=== PATIENT | female | born 1995 | race Caucasian/White ===

== ENCOUNTER 2024-01-05 17:16 | Inpatient (IN) | payer OTHER ==
[2024-01-05] MEDS ORDERED: NA CHLORIDE 0.9% 1,000 ML ONE ×2 (19:42→20:21)
[2024-01-05 19:50] LABS: Absolute Lymphocytes (CBC) 0.5 K/uL (0.7-4.9); Absolute Monocytes 0.2 K/uL (0.1-1.3); Absolute Neutrophil 15.8 K/uL (1.8-8.0); Basophils % 0.1 % (0-1.3); Hematocrit 49.6 % (36.0-45.0); Hemoglobin 15.6 g/dL (12.0-15.0); Lymphocytes % 2.9 % (15.3-44.8); MCH 31.6 pg (27.0-35.0); MCHC 31.5 g/dL (32.0-36.0); MCV 100.4 fL (80-100); MPV 9.5 fL (7.6-11.3); Monocytes % 1.2 % (3.3-12.3); Neutrophils % 95.8 % (41.7-73.7); Platelets 364 thou/uL (152-406); RBC Red Blood Cell Count 4.93 M/uL (3.86-4.86); Red Cell Distribution Width 13.6 % (12.1-15.2)
[2024-01-05 20:16] LABS: Specific Gravity 1.021 (1.005-1.030); Sqamous Epithelial <5 /HPF (None Seen); Urine Bacteria None Seen /HPF (<20); Urine Bilirubin NEGATIVE (Negative); Urine Blood 1+ (Negative); Urine Clarity Clear (Clear); Urine Color Colorless (Yellow); Urine Culture Reflex Order NOT NEEDED; Urine Glucose 4+ (Over) (Negative); Urine Ketones 4+ (Over) (Negative); Urine Microscopic Reflex YN ORDER UMIC; Urine Mucus Slight /HPF (None Seen); Urine Nitrite NEGATIVE (Negative); Urine Protein 1+ (Negative); Urine RBC <5 /HPF (None Seen); Urine Urobilinogen Normal (Normal); Urine WBC <5 /HPF (<5); Urine pH 5.5 (5.0-7.0)
[2024-01-05 20:20] LABS: ALT/SGPT 20 U/L (13-56); Albumin 4.9 g/dL (3.4-5.0); Albumin/Globulin Ratio 1.2 (1.1-1.8); Alkaline Phosphatase 117 U/L (45-117); Anion Gap 26.2 mEq/L (5.0-15.0); BUN Blood Urea Nitrogen 23 mg/dL (7-18); Bicarbonate 10 mEq/L (21-32); Bilirubin Total 0.6 mg/dL (0.2-1.0); Glomerular Filtration Rate 74 ml/min (=/>90); Glucose Level 340 mg/dL (74-106); Lipase 12 U/L (13-75); Potassium 5.2 mEq/L (3.5-5.1); Protein, Total 8.9 g/dL (6.4-8.2); Sodium Level 133 mEq/L (136-145)
[2024-01-05 20:23] LABS: AST/SGOT < 10 U/L (15-37); Troponin High Sensitivity < 3.0 pg/mL (<58.9)
--- NOTE | 2024-01-05 20:31 | EDPHYS ---
Physician Documentation [facility] Name: Padmini Kellogg Age: 28 yrs Sex: Female : 1995 Arrival Date: 01/05/2024 Time: 17:16 Bed 5 Private MD: ED Physician Zackery Ferrer HPI: 01/04 19:29 This 28 yrs old Female presents to ER via Wheelchair with complaints of High blood sb4 sugar, nausea, abdominal pain. 19:29 nonspecific abd pain x 2 days, woke up feeling poorly this morning, similar to prior sb4 DKA episodes. states she has been sick with vague illnesses over the past week so her blood sugar has been running higher. denies any changes in her insulin regimen . 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 - Infectious Disease History:: Denies. - Social history:: Smoking status: Patient denies any tobacco usage or history of. ROS: 19:29 Constitutional: Negative for fever, chills, and weight loss, sb4 19:29 Abdomen/GI: Positive for abdominal pain, nausea and vomiting, 19:29 All other systems are negative, Exam: 19:29 Head/Face: Normocephalic, atraumatic. Eyes: Extra-ocular motions intact. Periorbital sb4 areas with no swelling, redness, or edema. ENT: Mucous membranes moist. Respiratory: Lungs have equal breath sounds bilaterally, clear to auscultation and percussion. No rales, rhonchi or wheezes noted. No increased work of breathing, no retractions or nasal flaring. Abdomen/GI: Soft, non-tender, no distension. Skin: Warm, dry with normal turgor. Normal color with no rashes, no lesions, and no evidence of cellulitis. 19:29 Constitutional: The patient appears alert, awake, obviously ill, uncomfortable, 19:29 Cardiovascular: Rate: tachycardic, Rhythm: regular, Vital Signs: 17:50 BP 110 / 57; Pulse 113; Resp 20 S; Pulse Ox 97% on R/A; Weight 79.38 kg (R); Height 5 kc6 ft. 10 in. (R); Pain 5/10; 19:41 Pulse 118; Pulse Ox 97% on R/A; tm6 19:57 BP 132 / 67; tm6 20:28 BP 118 / 61; Pulse 121; Temp 97.5(O); Pulse Ox 100% on R/A; tm6 17:50 Body Mass Index 25.11 (79.38 kg, 177.8 cm) kc6 17:50 Pain Scale: Adult kc6 MDM: 17:50 Patient medically screened. sb4 20:27 Data reviewed: vital signs, nurses notes, lab test result(s), EKG, radiologic studies, sb4 and as a result, I will admit patient. Consideration of Admission/Observation Patient was admitted/placed on observation. Counseling: I had a detailed discussion with the patient and/or guardian regarding the historical points, exam findings, and any diagnostic results supporting the discharge/admit diagnosis, lab results, the need for further work-up and treatment in the hospital. 01/04 17:52 Order name: CBC with Diff; Complete Time: 20:33 sb4 01/04 17:52 Order name: CMP; Complete Time: 20:24 sb4 01/04 17:52 Order name: Lipase; Complete Time: 20:24 sb4 01/04 17:52 Order name: Test, Urine; Complete Time: 20:16 sb4 01/04 17:52 Order name: Urinalysis w/ reflexes; Complete Time: 20:17 sb4 01/04 17:52 Order name: Troponin High Sensitivity; Complete Time: 20:24 sb4 01/04 18:09 Order name: Glucose, Ancillary Testing; Complete Time: 18:10 EDMS 01/04 19:29 Order name: Magnesium; Complete Time: 20:24 sb4 01/04 19:58 Order name: CBC Smear Scan; Complete Time: 20:33 EDMS 01/04 20:17 Order name: SARS RAPID; Complete Time: 22:13 sb4 01/04 20:43 Order name: Basic Metabolic Panel EDMS 01/04 20:43 Order name: Basic Metabolic Panel EDMS 01/04 20:43 Order name: Basic Metabolic Panel EDMS 01/04 20:43 Order name: Basic Metabolic Panel; Complete Time: 17:00 EDMS 01/04 20:43 Order name: CBC with Automated Diff EDMS 01/04 20:43 Order name: CBC with Automated Diff; Complete Time: 17:00 EDMS 01/04 20:43 Order name: CBC with Automated Diff EDMS 01/04 20:43 Order name: CBC with Automated Diff EDMS 01/04 21:49 Order name: Glucose, Ancillary Testing; Complete Time: 21:50 EDMS 01/04 22:54 Order name: Glucose, Ancillary Testing; Complete Time: 22:56 EDMS 01/04 23:53 Order name: Glucose, Ancillary Testing; Complete Time: 23:54 EDMS 01/05 01:04 Order name: Glucose, Ancillary Testing; Complete Time: 01:05 EDMS 01/05 02:05 Order name: Glucose, Ancillary Testing; Complete Time: 17:00 EDMS 01/05 03:02 Order name: Glucose, Ancillary Testing; Complete Time: 17:00 EDMS 01/05 04:00 Order name: Glucose, Ancillary Testing; Complete Time: 17:00 EDMS 01/05 05:02 Order name: Glucose, Ancillary Testing; Complete Time: 17:00 EDMS 01/05 06:01 Order name: Glucose, Ancillary Testing; Complete Time: 17:00 EDMS 01/05 07:05 Order name: Glucose, Ancillary Testing; Complete Time: 17:00 EDMS 01/05 07:50 Order name: Glucose, Ancillary Testing; Complete Time: 17:00 EDMS 01/05 08:54 Order name: Glucose, Ancillary Testing; Complete Time: 17:00 EDMS 01/05 10:39 Order name: Basic Metabolic Panel; Complete Time: 17:00 EDMS 01/05 10:39 Order name: Magnesium; Complete Time: 17:00 EDMS 01/05 11:55 Order name: Glucose, Ancillary Testing; Complete Time: 17:00 EDMS 01/05 14:09 Order name: Glucose, Ancillary Testing; Complete Time: 17:00 EDMS 01/05 15:23 Order name: Glucose, Ancillary Testing; Complete Time: 17:00 EDMS 01/05 15:31 Order name: Basic Metabolic Panel; Complete Time: 17:00 EDMS 01/05 15:31 Order name: Magnesium; Complete Time: 17:00 EDMS 01/05 17:04 Order name: Glucose, Ancillary Testing; Complete Time: 17:19 EDMS 0804 18:36 Order name: Glucose, Ancillary Testing; Complete Time: 18:52 EDMS 04 20:25 Order name: Glucose, Ancillary Testing; Complete Time: 20:25 EDMS 04 21:13 Order name: Comprehensive Metabolic Panel; Complete Time: 21:14 EDMS 04 21:26 Order name: Glucose, Ancillary Testing; Complete Time: 21:26 EDMS 04 22:24 Order name: Glucose, Ancillary Testing; Complete Time: 22:25 EDMS 03 20:17 Order name: Chest Single View XRAY; Complete Time: 21:56 sb4 01/04 17:52 Order name: EKG; Complete Time: 17:52 sb4 03 17:52 Order name: IV Saline Lock; Complete Time: 19:47 sb4 03 17:52 Order name: Labs collected and sent; Complete Time: 19:47 sb4 03 17:52 Order name: EKG - Nurse/Tech; Complete Time: 19:37 sb4 EC:37 Rate is 116 beats/min. Rhythm is regular, Sinus tachycardia. [place] interval is normal at sb4 128 msec. QRS interval is normal at 74 msec. QT interval is normal at 320 msec. No Q waves. T waves are Normal. No ST changes noted. Clinical impression: No evidence of ischemia. Interpreted by me. Reviewed by me. Administered Medications: 19:57 Drug: NS 0.9% IV 1000 ml IV at 1 bolus Per protocol; 1000 mL bolus Route: IV; Rate: 1 tm6 bolus; Site: left antecubital; 20:28 Drug: NS 0.9% IV 1000 ml IV at 1 bolus Per protocol; 1000 mL bolus Route: IV; Rate: 1 tm6 bolus; Site: left antecubital; 20:48 Drug: Ondansetron IVP 4 mg IVP once; over 2 minutes Route: IVP; Site: left antecubital; tm6 21:35 Drug: Insulin Drip - (Insulin Regular Human IVP 100 units, NS 0.9% IV 100 ml) IV at tm6 calculated rate continuous; Standard concentration 1unit/ml; Dose for DKA is 0.1 units/kg/hr {Co-Signature: [email or web address] (Belia Rod RN).} Route: IV; Rate: calculated rate; Site: left antecubital; 22:45 Follow up: Rate change 8.9 units/hr; BGL 300 tm6 23:47 Follow up: Rate change 4.45 units/hr tm6 01/05 00:45 Follow up: Rate change 2.2 units/hr tm6 01:45 Follow up: Rate change 1.1 units/hr tm6 Disposition: 01/04 20:21 Co-signature as Attending Physician, Zackery Ferrer MD I reviewed the patient's care rt provided by the Advanced Practice Provider and agree with the diagnosis and treatment plan. Disposition Summary: 01/05/24 20:30 Hospitalization Ordered Notes: Hospitalization Status: Inpatient Admission sb4 Provider: Usman Pérez sbSteffi Condition: Serious sb4 Problem: new sb4 Symptoms: are unchanged sb4 Bed/Room Type: Standard sb4 Location: Telemetry/MedSurg (Inpatient)(01/06/24 22:11) cg Room Assignment: 229(01/06/24 22:30) cg Diagnosis - Type 2 diabetes mellitus with ketoacidosis without coma sb4 Forms: - Medication Reconciliation Form sb4 - SBAR form sb4 - Leadership Thank You Letter sb4 Critical care time excluding procedures: 20:27 Critical care time: Bedside Care: 20 minutes, Consultation: 10 minutes, Family sb4 Intervention: 5 minutes. Total time: 35 minutes Signatures: Dispatcher [employer] Sharron Garcia, RN RN cg Robbie Carrillo RN RN jb4 Yessi Luong RN RN kc6 Lin Amador PA-C PA-C sb4 Zackery Ferrer MD MD Ana Chávez [facility] Bianca Almeida RN RN tm6 Belia Rod RN [email or web address] Corrections: (The following items were deleted from the chart) 20:30 17:52 Abdomen Pelvis W Con+CT.RAD.BRZ ordered. EDMS TAMERAMS 22:37 20:30 Intensive Care Unit sb4 jb4 22:37 20:30 sb4 jb4 01/05 18:51 01/04 22:37 [facility] ER HOLD jb4 kmf 01/05 18:51 01/04 22:37 ERHOLD- jb4 [facility] 01/05 19:17 18:51 3- kmf cg 20:33 20:32 COMPREHENSIVE METABOLIC PANEL+C.LAB.BRZ ordered. EDMS EDMS : 18:51 Intensive Care Unit kmf cg 22: 19:17 cg cg 22:30 22:11 408 cg
--- NOTE | 2024-01-05 20:31 | ER ---
Nurse's Notes [facility] Name: Padmini Kellogg Age: 28 yrs Sex: Female : 1995 Arrival Date: 01/05/2024 Time: 17:16 Bed 5 Private MD: Diagnosis: Type 2 diabetes mellitus with ketoacidosis without coma Presentation: 01/04 17:50 Chief complaint: Patient states: she has been abd pain since yesterday and woke up with kc6 n/v and palpitations this AM. Coronavirus screen: At this time, the client does not indicate any symptoms associated with coronavirus-19. Ebola Screen: No symptoms or risks identified at this time. Initial Sepsis Screen: Does the patient meet any 2 criteria? HR > 90 bpm. Does the patient have a suspected source of infection? No. Patient's initial sepsis screen is negative. Risk Assessment: Do you want to hurt yourself or someone else? Patient reports no desire to harm self or others. Onset of symptoms was January 05, 2024. 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 - Infectious Disease History:: Denies. - Social history:: Smoking status: Patient denies any tobacco usage or history of. Screenin:37 [facility] ED Fall Risk Assessment (Adult) History of falling in the last 3 months, tm6 including since admission No falls in past 3 months (0 pts) Confusion or Disorientation No (0 pts) Intoxicated or Sedated No (0 pts) Impaired Gait No (0 pts) Mobility Assist Device Used No (0 pt) Altered Elimination No (0 pt) Score/Fall Risk Level 0 - 2 = Low Risk Oriented to surroundings, Maintained a safe environment, Educated pt \T\ family on fall prevention, incl call for assistance when getting out of bed. Abuse screen: Denies threats or abuse. Denies injuries from another. Nutritional screening: No deficits noted. Tuberculosis screening: No symptoms or risk factors identified. Assessment: 19:37 General: Appears uncomfortable, Behavior is calm, cooperative. Pain: Complains of pain tm6 in abdomen. Neuro: Level of Consciousness is awake, alert, obeys commands, Oriented to person, place, time, situation. Cardiovascular: Patient's skin is warm and dry. Rhythm is sinus tachycardia. Respiratory: Airway is patent Respiratory effort is even, unlabored, Respiratory pattern is regular, symmetrical. GI: Abdomen is flat, non-distended, Reports nausea, vomiting. : No signs and/or symptoms were reported regarding the genitourinary system. EENT: No signs and/or symptoms were reported regarding the EENT system. Derm: No signs and/or symptoms reported regarding the dermatologic system. Musculoskeletal: No signs and/or symptoms reported regarding the musculoskeletal system. 20:29 Reassessment: Patient is alert, oriented x 3, equal unlabored respirations, skin tm6 warm/dry/pink. Vital Signs: 17:50 BP 110 / 57; Pulse 113; Resp 20 S; Pulse Ox 97% on R/A; Weight 79.38 kg (R); Height 5 kc6 ft. 10 in. (R); Pain 5/10; 19:41 Pulse 118; Pulse Ox 97% on R/A; tm6 19:57 BP 132 / 67; tm6 20:28 BP 118 / 61; Pulse 121; Temp 97.5(O); Pulse Ox 100% on R/A; tm6 17:50 Body Mass Index 25.11 (79.38 kg, 177.8 cm) kc6 17:50 Pain Scale: Adult kc ED Course: 17:18 Patient arrived in ED. im 17:36 Lin Amador PA-C is PHCP. sb4 17:36 Zackery Ferrer MD is Attending Physician. sb4 17:51 Triage completed. kc6 17:51 Arm band placed on. kc6 19:24 Bianca Almeida, TAMMY is Primary Nurse. tm6 19:37 Patient has correct armband on for positive identification. Bed in low position. Call tm6 light in reach. Side rails up X2. Provided Education on: use of call tom. Stop insulin pump, per provider. Client placed on continuous cardiac and pulse oximetry monitoring. NIBP monitoring applied. criminal defense lawyer on. Pulse ox on. NIBP on. Door closed. Noise minimized. Warm blanket given. Pillow given. 19:37 EKG done, by ED staff, reviewed by Lin Amador PA-C. tm6 19:46 Inserted saline lock: 22 gauge in left antecubital area, using aseptic technique. Blood oe collected. Flushed with 10 mL NS. 19:46 Magnesium Sent. oe 19:46 Troponin High Sensitivity Sent. oe 19:46 CBC with Diff Sent. oe 19:46 CMP Sent. oe 19:46 Lipase Sent. oe 19:58 Urinalysis w/ reflexes Sent. tm6 19:58 Test, Urine Sent. tm6 20:28 Usman Pérez MD is Hospitalizing Provider. sb4 21:28 Chest Single View XRAY In Process Unspecified. EDMS 01/05 02:35 No provider procedures requiring assistance completed. Patient admitted, IV remains in tm6 place. 16:29 Missed attempt(s): 20 gauge in right antecubital area. oh1 Administered Medications: 01/04 19:57 Drug: NS 0.9% IV 1000 ml IV at 1 bolus Per protocol; 1000 mL bolus Route: IV; Rate: 1 tm6 bolus; Site: left antecubital; 20:28 Drug: NS 0.9% IV 1000 ml IV at 1 bolus Per protocol; 1000 mL bolus Route: IV; Rate: 1 tm6 bolus; Site: left antecubital; 20:48 Drug: Ondansetron IVP 4 mg IVP once; over 2 minutes Route: IVP; Site: left antecubital; tm6 21:35 Drug: Insulin Drip - (Insulin Regular Human IVP 100 units, NS 0.9% IV 100 ml) IV at tm6 calculated rate continuous; Standard concentration 1unit/ml; Dose for DKA is 0.1 units/kg/hr {Co-Signature: [email or web address] (Belia Rod RN).} Route: IV; Rate: calculated rate; Site: left antecubital; 22:45 Follow up: Rate change 8.9 units/hr; BGL 300 tm6 23:47 Follow up: Rate change 4.45 units/hr tm6 01/05 00:45 Follow up: Rate change 2.2 units/hr tm6 01:45 Follow up: Rate change 1.1 units/hr tm6 Medication: 01/04 19:37 VIS not applicable for this client. tm6 Intake: Outcome: 20:30 Decision to Hospitalize by Provider. sb4 01/05 02:35 Admitted to ER Hold. Please see [facility] for further documentation. tm6 Condition: stable Instructed on the need for admit, 23:42 Patient left the ED. jw7 Signatures: Dispatcher [employer] EDMS Thomas Garcia Jodi, RN RN jw7 Yessi Luong RN RN kc6 Lin Amador, PA-Renetta PA-C sb4 Rachel Crocker Tawney, RN RN tm6 Jennifer Torrez oh1 Belia Rod RN jm12
[2024-01-05 20:33] LABS: Blood Morphology Comment NOT SEEN (NOT SEEN); Platelet Estimate ADEQ; White Blood Cell Scan OK (OK)
[2024-01-05] MEDS ORDERED: GLUCAGON 1 MG/VIAL IM PRN (20:42)
[2024-01-05] MEDS ORDERED: D50W 25 GM/50 ML SYRINGE IV PRN (20:42)
[2024-01-05] MEDS ORDERED: ONDANSETRON 4 MG/2 ML VIAL ONE (20:45)
[2024-01-05] MEDS: NA CHLORIDE 0.9% 1,000 ML IV SCH (21:00)
[2024-01-05] MEDS ORDERED: NA CHLORIDE 0.9% 1,000 ML IV SCH (21:00)
--- NOTE | 2024-01-05 21:20 | P.HP ---
Certification for Inpatient With expected LOS: >2 Midnights Practitioner: I am a practitioner with admitting privileges, knowledge of patient current condition, hospital course, and medical plan of care. Services: Services provided to patient in accordance with Admission requirements found in Title 42 Section 412.3 of the Code of Federal Regulations Patient History Date of Service: 01/05/24 Reason for admission: Nausea vomiting diabetic ketoacidosis History of Present Illness: Patient is 28 years of age with a history of insulin-dependent diabetes she is on insulin pump at 1.5 units an hour this morning started complaining of nausea vomiting increasing heart rate increasing shortness of breath ended up here in the hospital with a diagnosis of diabetic ketoacidosis last episode was 10 years ago patient is compliant with her medication denies any fever chills has been sick recently has also been traveling no symptoms of urinary tract infection - Past Medical/Surgical History -: Type 1 diabetes on insulin pump -: Depression Review of Systems 10-point ROS is otherwise unremarkable Gastrointestinal: Nausea, Vomiting Physical Examination - Vital Signs Temperature: 97.5 F Blood Pressure: 110/57 Pulse: 113 Respirations: 20 Pulse Ox (%): 97 - Physical Exam General: Alert, Oriented x3 HEENT: Atraumatic Neck: Supple Respiratory: Clear to auscultation bilaterally Cardiovascular: No edema Capillary refill: <2 Seconds Gastrointestinal: Normal bowel sounds, Soft and benign Musculoskeletal: No clubbing Integumentary: No rashes, No breakdown Neurological: Normal gait, Normal speech, Normal strength at 5/5 x4 extr - Studies Laboratory Data (last 24 hrs) 01/05/24 01/05/24 01/05/24 19:43 19:43 19:43 WBC 16.50 H Hgb 15.6 H Hct 49.6 H Plt Count 364 Sodium 133 L Potassium 5.2 H BUN 23 H Creatinine 1.05 H Glucose 340 H Magnesium 2.2 Total Bilirubin 0.6 AST < 10 L ALT 20 Alkaline Phosphatase 117 Lipase 12 L Assessment and Plan - Problems (Diagnosis) (1) Diabetic ketoacidosis Current Visit: Yes Status: Acute Plan: Patient is 28 years of age admitted with nausea vomiting acute onset with tachycardia dyspnea she has diabetic ketoacidosis labs reviewed mildly hyperkalemic patient has a metabolic acidosis chest x-ray is clear we will plan to admit start on IV insulin IV fluids DKA protocol continue to monitor labs electrolyte protocol admit to the hospital Qualifiers: Diabetes mellitus type: type 1 Diabetes mellitus complication detail: without coma Qualified Code(s): E10.10 - Type 1 diabetes mellitus with ketoacidosis without coma - Advance Directives Does patient have a Living Will: No Does patient have a Durable POA for Healthcare: No
[2024-01-05] MEDS ORDERED: INSULIN REGULAR (HUMAN) 100 UNIT/ML ONE (21:21)
[2024-01-05] MEDS ORDERED: NA CHLORIDE 0.9% 100 ML ONE (21:22)
[2024-01-05] MEDS: INSULIN REGULAR, HUMAN 100 UNIT in NA CHLORIDE 0.9% 100 ML IV SCH (21:35)
--- NOTE | 2024-01-05 21:54 | RAD REPORT ---
EXAM DESCRIPTION: RAD - Chest Single View - 01/05/2024 9:26 pm CLINICAL HISTORY: Chest pain;Palpitations Chest pain. COMPARISON: <Comparisons> FINDINGS: Portable technique limits examination quality. The lungs are grossly clear. The heart is normal in size. No displaced fractures. IMPRESSION: No acute intrathoracic process suspected.
[2024-01-05 22:12] LABS: SARS-CoV-2 Antigen CONTROL BLUE LINE VIS/BG OK; SARS-CoV-2 Antigen Rapid Res Negative (Negative)
[2024-01-06] MEDS: D5 0.45 NS 1,000 ML IV SCH (00:35)
[2024-01-06] MEDS ORDERED: D5 0.45 NS 1,000 ML IV ONE ×3 (00:55→14:34)
[2024-01-06] MEDS ORDERED: D10W 125 ML IV PRN (01:15)
[2024-01-06] MEDS: ONDANSETRON 4 MG/2 ML VIAL IV PRN (02:07)
[2024-01-06] MEDS ORDERED: ONDANSETRON 4 MG/2 ML VIAL ONE (02:08)
[2024-01-06 02:39] VITALS: BMI 25.1
[2024-01-06] MEDS ORDERED: PROMETHAZINE INJ 25 MG/ML AMP ONE (04:35)
[2024-01-06] MEDS: PROMETHAZINE INJ 25 MG/ML AMP IV PRN (04:53)
[2024-01-06 05:00] LABS: Absolute Lymphocytes (CBC) 0.9 K/uL (0.7-4.9); Absolute Monocytes 0.9 K/uL (0.1-1.3); Absolute Neutrophil 14.9 K/uL (1.8-8.0); Basophils % 0.1 % (0-1.3); Hematocrit 46.2 % (36.0-45.0); Hemoglobin 14.6 g/dL (12.0-15.0); Lymphocytes % 5.3 % (15.3-44.8); MCH 31.8 pg (27.0-35.0); MCHC 31.6 g/dL (32.0-36.0); MCV 100.7 fL (80-100); MPV 9.4 fL (7.6-11.3); Monocytes % 5.7 % (3.3-12.3); Neutrophils % 88.9 % (41.7-73.7); Platelets 334 thou/uL (152-406); RBC Red Blood Cell Count 4.59 M/uL (3.86-4.86); Red Cell Distribution Width 13.6 % (12.1-15.2)
[2024-01-06 05:23] LABS: Anion Gap 20.8 mEq/L (5.0-15.0); Potassium 4.8 mEq/L (3.5-5.1)
--- NOTE | 2024-01-06 07:30 | P.PN ---
Date of Service: 01/06/24 Subjective: seen early breastfeeding care specialist on rounds feels tired / nauseated nothing worse, nothing improved yet ROS: 10 point ROS as noted above, otherwise negative Physical Exam: GEN: Alert, oriented, tired appearing CV: Sinus tachycardia, no edema Pulm: Nonlabored respirations on room air, clear bilaterally ABD: Soft, nontender, nondistended Neuro: Normal speech, normal affect vitals reviewed Problem List: DKA IDDM1 on insulin pump Sinus Tachycardia leukocytosis Depression/anxiety DKA IDDM1 on insulin pump on admission presented with nausea/vomiting with abdominal pain. +palpitations similar to past DKA episodes per patient denies any changes to diabetic medications recently s/p 2L NS bolus in ED anion gap improving, glc readings now in 250s BMP q4h for now, until gap closes and glc improves continue insulin drip continue IV fluids confirm home insulin regimen PRN zofran/phenergan Sinus Tachycardia felt palpitations at home after waking up in abdominal pain prior to arrival to ED likely secondary to DKA / dehydration monitor closely on telemetry. leukocytosis suspect secondary to DKA, no evidence of infxn at this time continue empiric rocephin for now - started on admission 01/05 denies fever, chills, urinary symptoms. No sick contacts recently. UA ok CXR clear Depression/anxiety confirm home meds, restart Code: Full Dispo: Home, ~1-2 days pending DKA resolves / stability Time Spent Managing Pts Care (In Minutes): 51
[2024-01-06] MEDS ORDERED: NA CHLORIDE 0.9% 50 ML ONE (07:32)
[2024-01-06] MEDS ORDERED: CEFTRIAXONE 1000 MG/VIAL ONE (07:32)
[2024-01-06] MEDS: CEFTRIAXONE 1,000 MG in NA CHLORIDE 0.9% 50 ML IVPB SCH (08:44)
[2024-01-06 10:38] LABS: Anion Gap 15.1 mEq/L (5.0-15.0); Potassium 4.1 mEq/L (3.5-5.1)
[2024-01-06] MEDS: PNEUMOCOCCAL VACCINE 0.5 ML IMVAC ONE (13:00)
[2024-01-06 15:31] LABS: Anion Gap 13.7 mEq/L (5.0-15.0); Potassium 3.7 mEq/L (3.5-5.1)
[2024-01-06 21:10] LABS: Albumin 3.6 g/dL (3.4-5.0); Albumin/Globulin Ratio 1.1 (1.1-1.8); Alkaline Phosphatase 83 U/L (45-117); Anion Gap 9.6 mEq/L (5.0-15.0); BUN Blood Urea Nitrogen 12 mg/dL (7-18); Bicarbonate 23 mEq/L (21-32); Bilirubin Total 0.7 mg/dL (0.2-1.0); Globulin 3.2 g/dL (2.3-3.5); Glomerular Filtration Rate 100 ml/min (=/>90); Glucose Level 224 mg/dL (74-106); Potassium 3.6 mEq/L (3.5-5.1); Protein, Total 6.8 g/dL (6.4-8.2); Sodium Level 137 mEq/L (136-145)
[2024-01-06 21:13] LABS: ALT/SGPT < 14 U/L (13-56); AST/SGOT < 10 U/L (15-37)
[2024-01-06] MEDS ORDERED: GLUCAGON 1 MG/VIAL IM PRN (22:19)
[2024-01-06] MEDS: INSULIN NPH (HUMAN) 100 UNITS/ML SQ SCH (22:30)
[2024-01-06] MEDS ORDERED: INSULIN 70/30 100 UNITS/ML SQ ONE (22:58)
[2024-01-06] MEDS ORDERED: D50W 25 GM/50 ML SYRINGE IV PRN (22:59)
[2024-01-06] MEDS: INSULIN GLARGINE 100 UNIT/ML SQ SCH (23:23)
[2024-01-07] MEDS ORDERED: D50W 25 GM/50 ML SYRINGE IV PRN (00:10)
[2024-01-07] MEDS: INSULIN REGULAR (HUMAN) 100 UNIT/ML SQ SCH (00:21)
[2024-01-07 05:21] VITALS: O2SAT 100
[2024-01-07 06:31] LABS: Absolute Lymphocytes (CBC) 1.5 K/uL (0.7-4.9); Absolute Monocytes 0.4 K/uL (0.1-1.3); Basophils % 0.4 % (0-1.3); Hematocrit 40.1 % (36.0-45.0); Hemoglobin 13.7 g/dL (12.0-15.0); Lymphocytes % 22.2 % (15.3-44.8); MCH 33.1 pg (27.0-35.0); MCHC 34.1 g/dL (32.0-36.0); MCV 96.9 fL (80-100); Monocytes % 5.8 % (3.3-12.3); Neutrophils % 71.6 % (41.7-73.7); Nucleated Red Blood Cells % 0.1 % (0-0); Platelets 278 thou/uL (152-406); RBC Red Blood Cell Count 4.14 M/uL (3.86-4.86); Red Cell Distribution Width 13.4 % (12.1-15.2)
[2024-01-07 07:08] LABS: ALT/SGPT 15 U/L (13-56); Albumin 3.6 g/dL (3.4-5.0); Albumin/Globulin Ratio 1.2 (1.1-1.8); Alkaline Phosphatase 80 U/L (45-117); Anion Gap 12.2 mEq/L (5.0-15.0); BUN Blood Urea Nitrogen 13 mg/dL (7-18); Bicarbonate 20 mEq/L (21-32); Bilirubin Total 0.7 mg/dL (0.2-1.0); Glomerular Filtration Rate 121 ml/min (=/>90); Glucose Level 140 mg/dL (74-106); Potassium 3.2 mEq/L (3.5-5.1); Protein, Total 6.6 g/dL (6.4-8.2); Sodium Level 137 mEq/L (136-145)
[2024-01-07 07:09] LABS: AST/SGOT < 10 U/L (15-37)
[2024-01-07 07:11] LABS: Phosphorus 1.4 mg/dL (2.5-4.9)
[2024-01-07] MEDS: POTASS/SODIUM PHOSPHATE 1 PKT POWD.PACK PO SCH (08:17)
[2024-01-07] MEDS: POTASSIUM CL SA 10 MEQ TAB PO ONE (08:18)
[2024-01-07] MEDS: INSULIN 70/30 100 UNITS/ML SQ SCH (08:19)
--- NOTE | 2024-01-07 08:54 | P.PN ---
Date of Service: 01/07/24 Subjective: feeling better today able to ambulate without feeling dizzy/lightheaded appetite coming back, did not eat yesterday no issues overnight HR 90-100s ROS: 10 point ROS as noted above, otherwise negative Physical Exam: GEN: Alert, oriented, tired appearing CV: Sinus tachycardia, no edema Pulm: Nonlabored respirations on room air, clear bilaterally ABD: Soft, nontender, nondistended Neuro: Normal speech, normal affect vitals reviewed Problem List: DKA, resolved IDDM1 on insulin pump Sinus Tachycardia leukocytosis secondary to DKA, resolved Depression/anxiety DKA, resolved IDDM1 on insulin pump on admission presented with nausea/vomiting with abdominal pain. +palpitations similar to past DKA episodes per patient denies any changes to diabetic medications recently s/p 2L NS bolus in ED anion gap closed 01/05. glc readings more stable in 200s. insulin drip deescalated to 70/30 insulin (01/06) plan to transition back to insulin pump at discharge continue IV fluids confirm home insulin regimen PRN zofran/phenergan Sinus Tachycardia felt palpitations at home after waking up in abdominal pain prior to arrival to ED secondary to DKA / dehydration monitor closely on telemetry. leukocytosis secondary to DKA, resolved suspect secondary to DKA, no evidence of infxn at this time denies fever, chills, urinary symptoms. No sick contacts recently. UA ok. CXR clear. Leukocytosis resolved. dc rocephin. no further antibiotics warranted. Depression/anxiety confirm home meds, restart Code: Full Dispo: Home, anticipate tomorrow pending tolerating diet / HR stable / glc stable on 70/30 Time Spent Managing Pts Care (In Minutes): 38
[2024-01-07] MEDS: D5 0.45 NS 1,000 ML IV SCH (09:00)
--- NOTE | 2024-01-07 17:01 | EKG ---
Test Date: 2024-01-05 Test Time: 19:32:02 Aeronautical Products Sales Engineer: JACQUELIN MEASUREMENT RESULTS: Intervals: Rate: 116 MO: 128 QRSD: 74 QT: 320 QTc: 444 [place]: P: 82 MO: 128 QRS: 86 T: 59 INTERPRETIVE STATEMENTS: Sinus tachycardia Right atrial enlargement Borderline ECG No previous ECG available for comparison Electronically Signed On 01-07-24 16:57:37 CDT by Archie Arciniega
[2024-01-08 06:08] LABS: Potassium 3.5 mEq/L (3.5-5.1); Sodium Level 139 mEq/L (136-145)
[2024-01-08 06:10] LABS: Albumin 3.3 g/dL (3.4-5.0); Anion Gap 8.5 mEq/L (5.0-15.0); BUN Blood Urea Nitrogen 10 mg/dL (7-18); Bicarbonate 29 mEq/L (21-32); Glucose Level 217 mg/dL (74-106); Magnesium 1.8 mg/dL (1.6-2.4)
[2024-01-08 06:11] LABS: Glomerular Filtration Rate 130 ml/min (=/>90)
[2024-01-08 06:12] LABS: Bilirubin Total 0.7 mg/dL (0.2-1.0)
[2024-01-08 06:13] LABS: Albumin/Globulin Ratio 1.2 (1.1-1.8); Globulin 2.7 g/dL (2.3-3.5)
[2024-01-08 06:14] LABS: Alkaline Phosphatase 77 U/L (45-117)
[2024-01-08 06:16] LABS: Absolute Lymphocytes (CBC) 1.6 K/uL (0.7-4.9); Absolute Monocytes 0.4 K/uL (0.1-1.3); Absolute Neutrophil 2.8 K/uL (1.8-8.0); Basophils % 0.4 % (0-1.3); Eosinophils % 0.2 % (0-4.4); Hematocrit 37.9 % (36.0-45.0); Hemoglobin 12.7 g/dL (12.0-15.0); Lymphocytes % 32.6 % (15.3-44.8); MCH 32.7 pg (27.0-35.0); MCHC 33.6 g/dL (32.0-36.0); MCV 97.3 fL (80-100); MPV 9.7 fL (7.6-11.3); Monocytes % 8.7 % (3.3-12.3); Neutrophils % 58.1 % (41.7-73.7); Platelets 238 thou/uL (152-406); RBC Red Blood Cell Count 3.89 M/uL (3.86-4.86); Red Cell Distribution Width 13.3 % (12.1-15.2)
[2024-01-08 07:10] LABS: ALT/SGPT < 14 U/L (13-56); AST/SGOT < 10 U/L (15-37)
[2024-01-08] MEDS: POTASSIUM CL SA 10 MEQ TAB PO ONE (07:59)
[2024-01-08 08:10] VITALS: BP 106/63; TEMP 96.9
--- NOTE | 2024-01-08 08:37 | P.DS ---
Admission Date: 01/05/24 Discharge Date: 01/08/24 Disposition: ROUTINE DISCHARGE Discharge Condition: FAIR Reason for Admission: Nausea vomiting diabetic ketoacidosis Hospital Course: Diagnosis DKA, resolved [id number] on insulin pump Sinus Tachycardia leukocytosis secondary to DKA, resolved Depression/anxiety Patient presented with abdominal pain associated with nausea/vomiting secondary to diabetic ketoacidosis. She was given ~2L IV fluid bolus and started on an insulin drip and had improvement of her symptoms. Anion gap closed a few hours after starting insulin drip. Patient continued to improve after deescalating insulin drip to 70/30 insulin. Glucose readings were more consistently in 100-200s. Patient was feeling better close to her normal self, abdominal pain improved, nausea/vomiting resolved, and was deemed stable for discharge. Patient tolerating diet on day of discharge and ambulating without issues or feeling dizzy. Leukocytosis was noted to be elevated on admission 16.5. She was started on empiric rocephin as a precaution to cover possible infection. However no evidence of infection at this time. No fever, chills, urinary symptoms. No sick contacts. Antibiotics were discontinued and leukocytosis continued to improve/resolve. No further antibiotics warranted on discharge. Vital Signs/Physical Exam: Temp Pulse Resp BP Pulse Ox 96.9 F 83 16 106/63 98 01/08/24 08:00 01/08/24 08:00 01/08/24 08:00 01/08/24 08:00 01/08/24 08:00 Laboratory Data at Discharge: WBC 4.90 thou/uL (4.3-10.9) 01/08/24 04:49 Hgb 12.7 g/dL (12.0-15.0) 01/08/24 04:49 Hct 37.9 % (36.0-45.0) 01/08/24 04:49 Plt Count 238 thou/uL (152-406) 01/08/24 04:49 Sodium 139 mEq/L (136-145) 01/08/24 04:49 Potassium 3.5 mEq/L (3.5-5.1) 01/08/24 04:49 BUN 10 mg/dL (7-18) 01/08/24 04:49 Creatinine 0.52 mg/dL (0.55-1.02) L 01/08/24 04:49 Glucose 217 mg/dL (74-106) H 01/08/24 04:49 Phosphorus 1.4 mg/dL (2.5-4.9) L* 01/07/24 06:12 Magnesium 1.8 mg/dL (1.6-2.4) 01/08/24 04:49 Total Bilirubin 0.7 mg/dL (0.2-1.0) 01/08/24 04:49 AST < 10 U/L (15-37) L 01/08/24 04:49 ALT < 14 U/L (13-56) 01/08/24 04:49 Alkaline Phosphatase 77 U/L (45-117) 01/08/24 04:49 Lipase 12 U/L (13-75) L 01/05/24 19:43 Physician Discharge Instructions: Patient presented with abdominal pain associated with nausea/vomiting secondary to diabetic ketoacidosis. She was given ~2L IV fluid bolus and started on an insulin drip and had improvement of her symptoms. Anion gap closed a few hours after starting insulin drip. Patient continued to improve after deescalating insulin drip to 70/30 insulin. Glucose readings were more consistently in 100-200s. Patient was feeling better close to her normal self, abdominal pain improved, nausea/vomiting resolved, and was deemed stable for discharge. Patient tolerating diet on day of discharge and ambulating without issues or feeling dizzy. Leukocytosis was noted to be elevated on admission 16.5. She was started on empi emily rocephin as a precaution to cover possible infection. However no evidence of infection at this time. No fever, chills, urinary symptoms. No sick contacts. Antibiotics were discontinued and leukocytosis continued to improve/resolve. No further antibiotics warranted on discharge. Diet: ADA Activity: Ad ana laura Followup: GABINO LLOYD [Primary Care Provider] -
== END 2024-01-08 09:34 | disposition home or self-care (01) | DRG 639 ==
LOC: ER 17:16 → ERHOLD 20:37 → 2ND 01-06 23:32
PROVIDERS: ADMIT Internal Medicine Sleep Medicine; ATTEND Internal Medicine
DX: E10.10 Type 1 diabetes mellitus with ketoacidosis without coma (principal); E87.5 Hyperkalemia; F32.A Depression, unspecified; F41.9 Anxiety disorder, unspecified; E86.0 Dehydration; R00.0 Tachycardia, unspecified; Z11.52 Encounter for screening for COVID-19; Z96.41 Presence of insulin pump (external) (internal)
CPT/HCPCS: 36415; 71045; 80048; 80053; 81001; 81025; 82947; 83036; 83690; 83735; 84100; 84484; 85025; 87811; 93005; 96374; 96375; 99285; J0696; J1815; J2405; J2550; J7030; J7799